=== PATIENT | female | born 1990 | race Asian ===

== ENCOUNTER 2018-04-28 07:51 | Inpatient (IN) | payer SELFPAY ==
[~2018-04-28] VITALS: Ht 162.6 cm; Wt 58.1 kg
[2018-04-28] MEDS ORDERED: LR 1,000 ML IV ONE (09:11)
[2018-04-28] MEDS ORDERED: OXYTOCIN/0.9 % SODIUM CHLORIDE 1,000 ML IV SCH (09:11)
[2018-04-28] MEDS ORDERED: NALBUPHINE HCL 10 MG/ML AMP IVP PRN (09:15)
[2018-04-28] MEDS ORDERED: TERBUTALINE SULFATE 1 MG/ML VIAL SUBCUT ONE (09:15)
[2018-04-28] MEDS: LR 1,000 ML IV SCH (09:28)
[2018-04-28] MEDS ORDERED: LR 500 ML IV ONE (09:38)
[2018-04-28] MEDS ORDERED: FENT2mCg/mL-ROPIVA0.2%/NS EPID 150 ML EP SCH (09:45)
[2018-04-28 10:01] VITALS: BP_SYST 125
[2018-04-28 10:33] LABS: BASOPHILS % (AUTO) 0.3 % (0.0-2.0); EOSINOPHILS # (AUTO) 0.1 K/uL (0.0-0.4); EOSINOPHILS % (AUTO) 0.9 % (0.0-4.0); HEMATOCRIT 37.1 % (36-48); HEMOGLOBIN 12.9 g/dL (12.0-16.0); LYMPHOCYTES # (AUTO) 1.4 K/uL (1.0-5.5); LYMPHOCYTES % (AUTO) 18.1 % (20.5-51.5); MEAN CORPUSCULAR HEMOGLOBIN 34 pg (27-31); MEAN CORPUSCULAR HGB CONC 35 % (32-36); MEAN CORPUSCULAR VOLUME 96 fL (79.0-98.0); MONOCYTES # (AUTO) 0.7 K/uL (0.0-1.0); MONOCYTES % (AUTO) 9.5 % (1.7-9.3); NEUTROPHILS # (AUTO) 5.5 K/uL (1.8-7.7); NEUTROPHILS % (AUTO) 71.2 % (40.0-70.0); PLATELET COUNT (AUTO) 174 K/uL (130-430); RED BLOOD CELL COUNT(AUTO) 3.86 MIL/uL (4.2-6.2); RED CELL DISTRIBUTION WIDTH 13.6 % (9.0-15.0); WHITE BLOOD COUNT (AUTO) 7.7 K/uL (4.8-10.8)
[2018-04-28] MEDS ORDERED: fentaNYL CITRATE/PF 100 MCG/2 ML AMP ONE ×2 (11:05→20:16)
[2018-04-28] MEDS ORDERED: ROPIVACAINE 0.2% 100 ML ONE ×2 (11:06→18:33)
[2018-04-28] MEDS ORDERED: fentaNYL CITRATE/PF 100 MCG/2 ML AMP EP ONE (20:16)
[2018-04-29] MEDS ORDERED: AMPICILLIN SODIUM 2 GM VIAL ONE (00:40)
[2018-04-29] MEDS ORDERED: AMPICILLIN SODIUM 2 GM in NS 100 ML IV ONE (00:40)
[2018-04-29] MEDS ORDERED: OXYTOCIN/0.9 % SODIUM CHLORIDE 1,000 ML IV ONE (02:43)
[2018-04-29] MEDS ORDERED: OXYTOCIN/0.9 % SODIUM CHLORIDE 1,000 ML IV SCH (02:43)
[2018-04-29] MEDS ORDERED: WITCH HAZEL LEAF 1 MED.PAD MED.PAD TP PRN (02:45)
[2018-04-29] MEDS ORDERED: LANOLIN 7 GM OINT. TP PRN (02:45)
[2018-04-29] MEDS ORDERED: DERMOPLAST SPRAY TP PRN (02:45)
[2018-04-29] MEDS ORDERED: HYDROCORTISONE 0.5%, 28.35 GM TOPICAL CREAM TP PRN (02:45)
[2018-04-29] MEDS ORDERED: METHYLERGONOVINE MALEATE 0.2 MG TABLET PO PRN (02:45)
[2018-04-29] MEDS ORDERED: DOCUSATE SODIUM 100 MG CAPSULE PO PRN (02:45)
[2018-04-29] MEDS: LR 1,000 ML IV SCH (03:30)
[2018-04-29] MEDS ORDERED: AMPICILLIN SODIUM 1 GM VIAL ONE (05:45)
[2018-04-29] MEDS: AMPICILLIN SODIUM 1 GM in NS 50 ML IV SCH ×2 (06:00→12:57)
[2018-04-29] MEDS: IBUPROFEN 600 MG TABLET PO SCH ×3 (06:00→17:50)
[2018-04-29] MEDS ORDERED: HYDROcodone/ACETAMIN 5-325 MG TAB (NORCO/ VICODIN) PO PRN (06:30)
[2018-04-29] MEDS ORDERED: OXYCODONE/ACETAMINOPHEN 5-325 TABLET PO PRN ×2 (06:30)
[2018-04-29] MEDS ORDERED: HYDROcodone/ACETAMIN 5-325 MG TAB (NORCO/ VICODIN) ONE (06:56)
[2018-04-29 16:04] LABS: BASOPHILS % (AUTO) 0.1 % (0.0-2.0); EOSINOPHILS # (AUTO) 0.1 K/uL (0.0-0.4); EOSINOPHILS % (AUTO) 0.5 % (0.0-4.0); HEMATOCRIT 24.5 % (36-48); HEMOGLOBIN 8.3 g/dL (12.0-16.0); LYMPHOCYTES # (AUTO) 1.4 K/uL (1.0-5.5); LYMPHOCYTES % (AUTO) 9.8 % (20.5-51.5); MEAN CORPUSCULAR HEMOGLOBIN 34 pg (27-31); MEAN CORPUSCULAR HGB CONC 34 % (32-36); MEAN CORPUSCULAR VOLUME 100 fL (79.0-98.0); MONOCYTES # (AUTO) 1.6 K/uL (0.0-1.0); MONOCYTES % (AUTO) 11.2 % (1.7-9.3); NEUTROPHILS # (AUTO) 10.8 K/uL (1.8-7.7); NEUTROPHILS % (AUTO) 78.4 % (40.0-70.0); PLATELET COUNT (AUTO) 155 K/uL (130-430); RED BLOOD CELL COUNT(AUTO) 2.46 MIL/uL (4.2-6.2); RED CELL DISTRIBUTION WIDTH 14.2 % (9.0-15.0); WHITE BLOOD COUNT (AUTO) 13.9 K/uL (4.8-10.8)
[2018-04-29] MEDS ORDERED: TEMAZEPAM 15 MG CAPSULE PO PRN (21:00)
[2018-04-29] MEDS: FERROUS SULFATE 325 MG TABLET.DR PO SCH (22:00)
[2018-04-29] MEDS: AMOXICILLIN 500 MG CAPSULE PO SCH (22:00)
[2018-04-29] MEDS ORDERED: AMOXICILLIN 250 MG CAPSULE ONE (22:06)
[2018-04-29] MEDS ORDERED: AMOXICILLIN 500 MG CAPSULE ONE (22:08)
[2018-04-30] MEDS: IBUPROFEN 600 MG TABLET PO SCH ×3 (06:00→12:20)
[2018-04-30] MEDS: AMOXICILLIN 500 MG CAPSULE PO SCH (07:30)
[2018-04-30] MEDS: FERROUS SULFATE 325 MG TABLET.DR PO SCH (12:20)
== END 2018-04-30 13:30 | disposition home or self-care (01) | DRG 807 ==
LOC: SPU 07:51 → OBSVTOIN 09:13 → SPU 04-29 11:13
PROVIDERS: ADMIT Obstetrics & Gynecology; ATTEND Obstetrics & Gynecology
PROC: 10D07Z6 Extraction of Products of Conception, Vacuum, Via Natural or Artificial Opening (ICD-10-PCS; principal; 2018-04-29)
PROC: 0W8NXZZ Division of Female Perineum, External Approach (ICD-10-PCS; 2018-04-29)
PROC: 3E0R3BZ Introduction of Anesthetic Agent into Spinal Canal, Percutaneous Approach (ICD-10-PCS; 2018-04-29)
PROC: 00HU33Z Insertion of Infusion Device into Spinal Canal, Percutaneous Approach (ICD-10-PCS; 2018-04-29)
PROC: 3E033VJ Introduction of Other Hormone into Peripheral Vein, Percutaneous Approach (ICD-10-PCS; 2018-04-29)
DX: O69.81X0 Labor and delivery complicated by cord around neck, without compression, not applicable or unspecified (principal); Z37.0 Single live birth; O66.5 Attempted application of vacuum extractor and forceps; Z3A.39 39 weeks gestation of pregnancy
CPT/HCPCS: 36415; 85025; 86870; 86886; 86900; 86901; G0378; J0290; J2300; J2590; J2795; J3010; J7120